=== PATIENT | female | born 1985 | race Caucasian/White ===

== ENCOUNTER → 2017-10-18 | Outpatient (CLI) | payer OTHER ==
[~2017-10-18] MED LIST: IBUP-1223 PO; LIOT5TAB3 PO; METF750T2 PO; MULT1TAB60 PO; OXYC10TA6 PO; OXYM20TA13 PO; SPIR50TA2 PO; THYR60TA PO
[2017-10-18 09:01] LABS: BASOPHILS # (AUTO) 0.06 x10^3/uL (0-0.1); BASOPHILS % (AUTO) 1 % (0-1); EOSINOPHILS # (AUTO) 0.16 x10^3/uL (0-0.4); EOSINOPHILS % (AUTO) 2 % (1-7); LYMPHOCYTES # (AUTO) 2.25 x10^3/uL (1-3.4); LYMPHOCYTES % (AUTO) 26 % (22-44); MD NO; MEAN CORPUSCULAR HEMOGLOBIN 28.6 pg (27.0-34.8); MEAN CORPUSCULAR HGB CONC 34.1 g/dL (32.4-35.8); MEAN CORPUSCULAR VOLUME 83.7 fL (80-100); MEAN PLATELET VOLUME 9.1 fL (7.4-10.4); MONOCYTES # (AUTO) 0.57 x10^3/uL (0.2-0.8); MONOCYTES % (AUTO) 7 % (2-9); NEUTROPHILS # (AUTO) 5.51 x10^3/uL (1.8-6.8); NEUTROPHILS % (AUTO) 64 % (42-75); PLATELET COUNT 296 x10^3/uL (130-400); RED BLOOD COUNT 4.85 x10^6/uL (3.82-5.3); RED CELL DISTRIBUTION WIDTH 13.5 % (9.6-15.2)
[2017-10-18 09:14] LABS: ALANINE AMINOTRANSFERASE 22 U/L (12-78); ALBUMIN 3.7 g/dL (3.4-5.0); ANION GAP 7 mmol/L (5-15); CHLORIDE 107 mmol/L (98-107); CREATININE 0.76 mg/dL (0.55-1.02)
[2017-10-18 09:19] LABS: ALKALINE PHOSPHATASE 125 U/L (45-117); BILIRUBIN,TOTAL 0.5 mg/dL (0.2-1.0); TOTAL PROTEIN 7.8 g/dL (6.4-8.2)
== END | disposition home or self-care (01) ==
LOC: STAR 08:22
PROVIDERS: ATTEND Obstetrics & Gynecology
DX: N83.202 Unspecified ovarian cyst, left side (principal); N83.201 Unspecified ovarian cyst, right side; N92.0 Excessive and frequent menstruation with regular cycle; E03.9 Hypothyroidism, unspecified; N97.9 Female infertility, unspecified; Z88.0 Allergy status to penicillin; Z88.2 Allergy status to sulfonamides
CPT/HCPCS: 36415; 80053; 84703; 85025

== ENCOUNTER 2017-10-22 09:31 | Day surgery (SDC) | payer OTHER ==
[2017-10-18 14:32] VITALS: BP 134/94
[~2017-10-22] VITALS: Ht 167.6 cm; Wt 99.0 kg
[2017-10-22] MEDS ORDERED: LIDOCAINE 1%, 2ML ONE (10:31)
[2017-10-22 10:35] LABS: HCG UR SG 1.013 (1.003-1.030)
[2017-10-22] MEDS ORDERED: SCOPOLAMINE PATCH, 1.5MG PATCH.TD72 TD ONE (12:01)
[2017-10-22] MEDS ORDERED: PROMETHAZINE 25 MG/ML, 1ML ONE (12:02)
[2017-10-22] MEDS ORDERED: MIDAZOLAM 1 MG/ML, 2ML ONE (12:09)
[2017-10-22] MEDS ORDERED: EPINEPHRINE 1 MG/ML, 1ML ONE (12:10)
[2017-10-22] MEDS ORDERED: SILVER NITRATE STICK TP ONE (12:10)
[2017-10-22] MEDS ORDERED: BUPIVACAINE/PF 0.25% ONE (12:10)
[2017-10-22] MEDS ORDERED: INDIGO CARMINE 0.8%, 5ML ONE (12:14)
[2017-10-22] MEDS ORDERED: ROCURONIUM 10 MG/ML,10ML ONE (12:18)
[2017-10-22] MEDS ORDERED: KETOROLAC 30 MG/1 ML ONE (12:18)
[2017-10-22] MEDS ORDERED: PROPOFOL 10 MG/ML, 20ML ONE (12:18)
[2017-10-22] MEDS ORDERED: DEXAMETHASONE 4 MG/ML, 1ML ONE ×2 (12:18)
[2017-10-22] MEDS ORDERED: ONDANSETRON 2MG/ML, 2ML ONE ×2 (12:18)
[2017-10-22] MEDS ORDERED: CEFOTETAN PMX 2GM/50ML 50 ML ONE (12:18)
[2017-10-22] MEDS ORDERED: LIDOCAINE-MPF 2% ,5ML ONE (12:18)
[2017-10-22] MEDS ORDERED: FENTANYL PF 250 MCG/5ML ONE (12:19)
[2017-10-22] MEDS ORDERED: PROPOFOL 50 ML ONE (12:40)
[2017-10-22] MEDS ORDERED: HYDROmorphone 2 MG/ML, 1ML ONE (12:52)
[2017-10-22] MEDS ORDERED: INDIGO CARMINE 0.8%, 5ML IVPB ONE ×2 (13:00→13:06)
[2017-10-22] MEDS ORDERED: ONDANSETRON 2MG/ML, 2ML IVPush PRN (13:30)
[2017-10-22] MEDS ORDERED: PROMETHAZINE 25 MG/ML, 1ML IV PRN (13:30)
[2017-10-22] MEDS ORDERED: LABETALOL 5MG/ML, 20ML IV PRN (13:30)
[2017-10-22] MEDS ORDERED: MEPERIDINE/PF 25MG/0.5ML IVPush PRN (13:30)
[2017-10-22] MEDS ORDERED: FENTANYL PF 100 MCG/2ML IV PRN (13:30)
[2017-10-22] MEDS ORDERED: LORazepam 2 MG/ML, 1ML IVPush PRN (13:30)
[2017-10-22] MEDS ORDERED: ACETAMINOPHEN 325 MG TABLET PO PRN (13:30)
[2017-10-22] MEDS ORDERED: HYDROmorphone 1 MG/ML, 1ML IV PRN (13:30)
[2017-10-22] MEDS ORDERED: hydrALAzine 20 MG/ML, 1ML IV PRN (13:30)
[2017-10-22] MEDS ORDERED: OXYcodone 5 MG/5 ML ORAL.SOL UDC PO PRN (13:30)
[2017-10-22] MEDS ORDERED: HALOPERIDOL 5 MG/ML ONE (14:05)
[2017-10-22] MEDS ORDERED: MEPERIDINE/PF 50 MG/ML ONE (14:18)
[2017-10-22] MEDS ORDERED: OXYcodone 5 MG/5 ML ORAL.SOL UDC ONE (14:18)
== END 2017-10-22 18:55 ==
LOC: OUT 09:31
PROVIDERS: ATTEND Obstetrics & Gynecology
DX: N92.0 Excessive and frequent menstruation with regular cycle (principal); N94.6 Dysmenorrhea, unspecified; N83.202 Unspecified ovarian cyst, left side; N80.9 Endometriosis, unspecified; N73.6 Female pelvic peritoneal adhesions (postinfective); Z90.721 Acquired absence of ovaries, unilateral; E03.9 Hypothyroidism, unspecified; Z98.890 Other specified postprocedural states; Z88.1 Allergy status to other antibiotic agents; Z88.0 Allergy status to penicillin
CPT/HCPCS: 58555; 58662; 81025; 88305; J0171; J1100; J1170; J1885; J2175; J2405; J2704; J3010; J3490; S0074